=== PATIENT | male | born 1950 | race Caucasian/White ===

== ENCOUNTER → 2020-08-19 13:39 | Outpatient (CLI) | payer MEDICARE, BC | END | disposition home or self-care (01) | LOC: D.CT 13:39 | PROVIDERS: ATTEND Family Medicine | DX: R10.31 Right lower quadrant pain (principal) ==

== ENCOUNTER → 2020-08-19 21:25 | Outpatient (CLI) | payer MEDICARE, BC ==
[2020-08-19 23:49] LABS: BASOPHILS 0.9 % (0-2); EOSINOPHILS 0.7 % (0-7); HEMOGLOBIN 14.7 g/dL (13.5-17.5); LYMPHOCYTES 12.7 % (15-50); MCH 32.9 pg (26.0-34.0); MCHC 32.6 g/dL (31.0-37.0); MCV 101.2 fL (80.0-100.0); MEAN PLATELET VOLUME 9.4 fL (7.4-10.4); NEUTROPHILS 76.7 % (40-80); PLATELET COUNT 290 10x3/uL (130-400); RBC 4.45 10x6/uL (4.20-6.10); RDW 13.8 % (11.5-14.5); WBC 8.5 10x3/uL (4.8-10.8)
[2020-08-19 23:59] LABS: ALBUMIN 4.5 g/dL (3.4-5.0); ANION GAP 16.9 mmol/L (8-16); BILIRUBIN - TOTAL 0.58 mg/dL (0.2-1.3); CALCIUM 9.7 mg/dL (8.5-10.1); CARBON DIOXIDE 24.2 mmol/L (21.0-32.0); CREATININE - SERUM 1.6 mg/dL (0.6-1.3); POTASSIUM - SERUM 5.1 mmol/L (3.5-5.1); PROTEIN - SERUM 7.1 g/dL (6.4-8.2)
== END | disposition home or self-care (01) ==
LOC: D.LABREF 21:25
DX: R10.9 Unspecified abdominal pain (principal)